=== PATIENT | female | born 1955 | race African-American/Black ===

== ENCOUNTER 2020-08-17 17:49 | Emergency (ER) | payer MEDICARE, MEDICAID, SELFPAY ==
[2020-08-17] VITALS (25 sets, daily range): BP systolic 108–160; BP diastolic 78–129; PULSE 70–90; RESP 13–38; TEMP 36.7; O2SAT 95–100
--- NOTE | ~2020-08-17 | XR_ITS ---
EXAMINATION: XR chest 1V portable DATE: 08/17/2020 18:16 INDICATION: Transient alteration of awareness. TECHNIQUE: A single frontal view of the chest was obtained. COMPARISON: None. FINDINGS: There is mild discoid atelectasis in right midlung zone. No pleural effusion or pneumothora x. The heart size is normal. IMPRESSION: 1. Mild discoid atelectasis in right midlung zone. Reviewed, dictated and finalized at location A.
--- NOTE | 2020-08-17 18:03 | ECG_ITS ---
Measurements Intervals [place] Rate: 72 P: 51 DC: 132 QRS: -14 QRSD: 72 T: 47 QT: 351 QTc: 385 Interpretive Statements SINUS RHYTHM BASELINE ARTIFACT- V1-V2, V4-V5 NORMAL ECG Electronically Signed On 08-17-2020 20:35:27 CDT by Shahid Doan D.O.
--- NOTE | 2020-08-17 18:04 | ED.GENADULT ---
HPI - General Adult General Chief complaint: Weakness Stated complaint: LETHARGY Source: patient and EMS History of Present Illness HPI narrative: Patient is a 65 y/o female brought in by EMS for altered mental status. Patient reportedly has been lethargic for last 5 days. There is no known alleviating or exacerbating factor. Patient denies any pain. She has no subjective complaints and does know why she is here. Related Data Home Medications Medication Instructions Recorded Confirmed Miralax 08/17/20 Vanicream 08/17/20 08/17/20 acetaminophen 08/17/20 amlodipine 5 mg DAILY 08/17/20 08/17/20 artificial tears solution drp OPHTHALMIC (EYE) 08/17/20 benztropine 08/17/20 divalproex See Rx Instructions .ROUTE .COMPLEX 08/17/20 08/17/20 donepezil 08/17/20 guaifenesin 08/17/20 haloperidol 10 mg PO BID 08/17/20 08/17/20 hydrocodone-acetaminophen 1 tablet PO Q6H 08/17/20 08/17/20 lisinopril 08/17/20 memantine 10 mg PO BID 08/17/20 08/17/20 multivitamin,gr-hohr-oxawkigm tablet 08/17/20 [Complete Multivitamin] paliperidone mg PO 08/17/20 quetiapine 25 mg PO BID 08/17/20 08/17/20 Allergies Allergy/AdvReac Type Severity Reaction Status Date / Time chlorpromazine Allergy Unknown Verified 08/17/20 18:26 [From Thorazine] codeine Allergy Unknown Verified 08/17/20 18:26 diazepam [From Valium] Allergy Unknown Verified 08/17/20 18:26 lorazepam [From Ativan] Allergy Unknown Verified 08/17/20 18:26 morphine Allergy Unknown Verified 08/17/20 18:26 Review of Systems Constitutional: Constitutional: Denies chills, Denies fever(s), Denies headache(s) and Denies weakness Eyes: Eyes: Denies blurry vision ENT: Denies headache(s) and Denies neck pain Cardiovascular: Cardiovascular: Denies chest pain and Denies dyspnea Respiratory: Respiratory: Denies cough and Denies dyspnea Gastrointestinal: Gastrointestinal: Denies abdominal pain, Denies diarrhea, Denies nausea and Denies vomiting Genitourinary: Genitourinary: Denies hematuria and Denies dysuria Musculoskeletal: Musculoskeletal: Denies back pain and Denies neck pain Neurologic: Denies headache(s) and Denies weakness [facility] Social History Social History Gender identity (if verbalized by the patient): Female Exam Const: General: no acute distress and well developed Orientation/consciousness: oriented to person, oriented to place, oriented to time and patient oriented x3 HENMT: Head: normocephalic Ears: external ears normal General nose exam: Normal external nose present Eyes: General: appearance normal, both eyes and all related structures Conjunctivae: conjunctivae normal Neck: Neck: normal visual inspection and full ROM Chest: Chest palpation & inspection: normal inspection of the chest and no tenderness Resp: Effort & Inspection: normal respiratory effort Auscultation: clear to auscultation bilaterally Cardio: Rate: regular rate Rhythm: regular rhythm GI: GI Palp: No abdominal tenderness and Yes Soft to palpation Skin: General skin exam: normal color and turgor normal Neuro: General: oriented to person, oriented to place, oriented to time and patient oriented x3 Cognition (Neuro): normal cognition Extrem: General: normal to inspection, full ROM and no pedal edema Psych: Appearance: grossly normal Mental Status: mental status grossly normal Affect: normal affect Course Vital Signs Vital signs: Vital Signs Pulse Rate 80 08/17/20 17:57 Respiratory Rate 18 08/17/20 17:57 Blood Pressure 127/83 08/17/20 17:57 Temperature 36.7 C 08/17/20 18:18 Pulse Rate 74 08/18/20 00:52 Respiratory Rate 16 08/18/20 00:52 Blood Pressure 110/75 08/18/20 00:32 Pulse Oximetry 100 08/17/20 22:46 Medical Decision Making Vital Signs Vital Signs: Vital Signs Pulse Rate 80 08/17/20 17:57 Respiratory Rate 18 08/17/20 17:57 Blood Pressure 127/83
--- NOTE | 2020-08-17 19:03 | PC.NURSE ---
Lab draw x2 unsuccessful, pt c/o pain with lab collection. [facility] in to attempt to draw labs as ordered.
--- NOTE | 2020-08-17 19:04 | PC.NURSE ---
Report to Florin RN, to continue care.
[2020-08-17 19:34] LABS: Basophils Percent Auto 0.2 % (0.2-1.2); Eosinophils Percent Auto 0.1 % (0-4.4); Hematocrit 39.1 % (37.0-47.0); Hemoglobin 13.1 g/dL (12.0-15.0); Immature Granulocyte Absolute 0.04 K/mm3 (0.00-0.031); Immature Granulocyte Percent A 0.4 % (0-0.5); Lymphocytes Absolute Auto 2.29 K/mm3 (0.9-3.2); Lymphocytes Percent Auto 20.5 % (18.3-44.2); Mean Corpuscular HGB Conc 33.5 g/dl (32-36); Mean Corpuscular Volume 89.5 fl (80-100); Mean Platelet Volume 10.7 fl (7.4-10.4); Monocytes Absolute Auto 1.3 K/mm3 (0.1-0.6); Monocytes Percent Auto 11.3 % (2.6-8.5); Neutrophils Absolute Auto 7.6 K/mm3 (1.3-6.7); Neutrophils Percent Auto 67.5 % (45.5-73.1); Platelet Count Result 160 k/mm3 (150-375); Red Blood Count 4.37 M/mm3 (4.2-5.4); Red Cell Distribution Width 14.1 % (11.5-14.5); White Blood Count 11.2 K/mm3 (4.5-10.0)
[2020-08-17 19:39] LABS: Alanine Aminotransferase 10 U/L (4-35); Albumin Level 3.9 g/dL (3.5-5.1); Alkaline Phosphatase 103 U/L (38-126); Anion Gap 5 mmol/L (8-16); Aspartate Amino Transferase 30 U/L (14-36); Bilirubin,Total 0.5 mg/dL (0.2-1.3); Blood Urea Nitrogen 22 mg/dL (7-17); Calcium 10.1 mg/dL (8.4-10.2); Carbon Dioxide 32 mmol/L (22-30); Chloride 107 mmol/L (98-107); Estimated CRCL calculation 40 ml/min; Estimated Glomerular Filt Rate 55; Glucose 106 mg/dL (65-105); Potassium 4.1 mmol/L (3.4-5.0); Sodium 144 mmol/L (137-145)
[2020-08-17 19:55] LABS: Alveolar/Arterial O2 Gradient 35.1 mmHg; Base Excess ABG 2.3 mEq/l (+/-2.0); Fractional Inspired Oxygen 21 %; HCO3 ABG 26.7 mEq/l (22.0-26.0); Oxygen Content ABG 17.2 %vol (16.0-22.0); Oxygen Saturation ABG 93.5 % (95.0-100.0); Oxyhemoglobin 92.5 % THb (90.0-100.0); PO2 ABG 65.5 mmHg (80.0-100.0); PO2 FiO2 Ratio Arterial Blood 3.12 %; Total Hemoglobin 13.2 g/dL (12.0-18.0); pH ABG 7.432 (7.350-7.450)
[2020-08-17 19:59] LABS: Device ROOM AIR; Modified Allen's Test Pass; Site Drawn RIGHT RADIAL
[2020-08-17 22:37] LABS: Add Urine Microscopic? YES; Appearance Urine Cloudy (Clear); Bacteria Urine 1+ /hpf; Bilirubin Urine Negative (Negative); Blood Urine 3+ (Negative); Color Urine Yellow (Yellow); Glucose Urine UA Negative (Negative); Ketones Urine Negative (Negative); Leukocyte Esterase Ur 3+ LEU/UL (Negative); Mucus Urine Rare /lpf; Nitrate Urine Negative (Negative); Protein Urine 1+ mg/dL (Negative); RBC Urine >75 /hpf (0-2); WBC Urine 51-75 /hpf
[2020-08-18] VITALS (7 sets, daily range): BP systolic 110–139; BP diastolic 74–75; PULSE 60–74; RESP 12–16
--- NOTE | 2020-08-18 00:20 | PC.NURSE ---
called [facility] to request transport. ETA [phone] called [facility] to request transport. Will call back with availability.
--- NOTE | 2020-08-18 00:27 | PC.NURSE ---
[facility] returned call. Trip accepted.
--- NOTE | 2020-08-18 00:42 | PC.NURSE ---
Report called to [place] RN. Informed of plan. Pt to be transported by EMS back to [place].
--- NOTE | 2020-08-18 00:53 | PC.NURSE ---
[facility] here.
== END 2020-08-18 01:01 ==
PROVIDERS: Emergency Provider Emergency Medicine
DX: N39.0 Urinary tract infection, site not specified (principal); R41.82 Altered mental status, unspecified; R91.8 Other nonspecific abnormal finding of lung field
CPT/HCPCS: 36415; 36600; 51701; 71045; 80053; 81001; 82805; 85025; 87077; 87086; 87088; 87186; 93005; 99283

== ENCOUNTER 2020-11-10 20:20 | Emergency (ER) | payer MEDICARE, MEDICAID, SELFPAY ==
[2020-11-10 20:27] VITALS: BP 125/95; PULSE 92; RESP 16; TEMP 36.4; O2SAT 97
[2020-11-10 21:19] LABS: Basophils Percent Auto 0.2 % (0.2-1.2); Eosinophils Percent Auto 0.1 % (0-4.4); Hematocrit 34.9 % (37.0-47.0); Hemoglobin 11.3 g/dL (12.0-15.0); Immature Granulocyte Absolute 0.03 K/mm3 (0.00-0.031); Immature Granulocyte Percent A 0.3 % (0-0.5); Lymphocytes Absolute Auto 2.78 K/mm3 (0.9-3.2); Lymphocytes Percent Auto 25.7 % (18.3-44.2); Mean Corpuscular HGB Conc 32.4 g/dl (32-36); Mean Corpuscular Hemoglobin 29.5 pg (26-34); Mean Corpuscular Volume 91.1 fl (80-100); Mean Platelet Volume 9.9 fl (7.4-10.4); Monocytes Absolute Auto 1.8 K/mm3 (0.1-0.6); Monocytes Percent Auto 16.6 % (2.6-8.5); Neutrophils Absolute Auto 6.2 K/mm3 (1.3-6.7); Neutrophils Percent Auto 57.1 % (45.5-73.1); Platelet Count Result 199 k/mm3 (150-375); Red Blood Count 3.83 M/mm3 (4.2-5.4); White Blood Count 10.8 K/mm3 (4.5-10.0)
[2020-11-10 21:25] LABS: Add Urine Microscopic? YES; Appearance Urine Cloudy (Clear); Bilirubin Urine Negative (Negative); Blood Urine 3+ (Negative); Color Urine Red (Yellow); Glucose Urine UA Negative (Negative); Ketones Urine Negative (Negative); Leukocyte Esterase Ur 3+ LEU/UL (Negative); Nitrate Urine Negative (Negative); Protein Urine 2+ mg/dL (Negative); RBC Urine >75 /hpf (0-2); Specific Grav Ur 1.012 (1.001-1.035); Squamous Epithelial Cell Urine Rare /hpf (Few); WBC Urine >75 /hpf
[2020-11-10 21:31] LABS: Anion Gap 7 mmol/L (8-16); Blood Urea Nitrogen 28 mg/dL (7-17); Calcium 9.1 mg/dL (8.4-10.2); Carbon Dioxide 25 mmol/L (22-30); Chloride 109 mmol/L (98-107); Estimated CRCL calculation 41 ml/min; Estimated Glomerular Filt Rate 50; Glucose 99 mg/dL (65-110); Potassium 4.4 mmol/L (3.4-5.0); Sodium 141 mmol/L (137-145)
--- NOTE | 2020-11-10 21:40 | ED.AMS ---
HPI - Altered Mental Status General Chief Complaint: Altered Mental Status Stated Complaint: LETHARGIC X 1.5 DAYS Time Seen by Provider: 11/10/20 20:31 History of Present Illness HPI narrative: Patient is a 65-year-old female who presents ER from shelter with reports of increased confusion/tiredness. Patient is oriented x1 at this time. She has baseline dementia as well as schizophrenia. She follows commands and has no reports of pain. There is no additional history provided. Related Data Home Medications Medication Instructions Recorded Confirmed Miralax 08/17/20 Vanicream 08/17/20 08/17/20 acetaminophen 08/17/20 amlodipine 5 mg DAILY 08/17/20 08/17/20 artificial tears solution drp OPHTHALMIC (EYE) 08/17/20 benztropine 08/17/20 divalproex See Rx Instructions .ROUTE .COMPLEX 08/17/20 08/17/20 donepezil 08/17/20 guaifenesin 08/17/20 haloperidol 10 mg PO BID 08/17/20 08/17/20 hydrocodone-acetaminophen 1 tablet PO Q6H 08/17/20 08/17/20 lisinopril 08/17/20 memantine 10 mg PO BID 08/17/20 08/17/20 multivitamin,un-vndp-byttwfii tablet 08/17/20 [Complete Multivitamin] paliperidone mg PO 08/17/20 quetiapine 25 mg PO BID 08/17/20 08/17/20 Allergies Allergy/AdvReac Type Severity Reaction Status Date / Time chlorpromazine Allergy Unknown Verified 11/10/20 20:33 [From Thorazine] codeine Allergy Unknown Verified 11/10/20 20:33 diazepam [From Valium] Allergy Unknown Verified 11/10/20 20:33 lorazepam [From Ativan] Allergy Unknown Verified 11/10/20 20:33 morphine Allergy Unknown Verified 11/10/20 20:33 Review of Systems Review of Systems: ROS unobtainable: Yes unobtainable due to mental status PMFSH Past Medical History Medical History (Updated 11/10/20 @ 21:53 by Benji Jimenez MD) Dementia Hepatitis C Hypertension Schizophrenia Sickle cell anemia Surgical History Surgical History (Updated 11/10/20 @ 21:50 by Benji Jimenez MD) Surgical history unknown Social History Social History Gender identity (if verbalized by the patient): Female Exam Narrative: Exam Narrative: GENERAL: Well-appearing, well-nourished, and in no acute distress. HEAD: Normocephalic, atraumatic. EYES: PERRL and EOMI. ENT: Mucous membranes moist. CHEST: Clear to auscultation. No respiratory distress. HEART: Regular rate and rhythm. Normal peripheral pulses. ABDOMEN: Soft, nontender, nondistended. EXTREMITIES: Normal range of motion. 1+ edema. SKIN: Warm, dry, no rash. NEURO: Alert and oriented x1. Course Course Emergency Course: Patient with UTI. Afebrile with only slightly elevated white count without left shift. Will give IV antibiotics and discharged back to shelter with oral antibiotics Vital Signs Vital signs: Vital Signs Temperature 97.5 F L 11/10/20 20:27 Pulse Rate 92 11/10/20 20:27 Respiratory Rate 16 11/10/20 20:27 Blood Pressure 125/95 H 11/10/20 20:27 Pulse Oximetry 97 11/10/20 20:27 Temperature 97.5 F L 11/10/20 20:27 Pulse Rate 92 11/10/20 20:27 Respiratory Rate 16 11/10/20 20:27 Blood Pressure 125/95 H 11/10/20 20:27 Pulse Oximetry 97 11/10/20 20:27 MDM - Altered Mental Status Lab Data Result diagrams: 11/10/20 21:13 11/10/20 21:13 Labs: Lab Results 11/10/20 11/10/20 11/10/20 Range/Units 20:53 21:13 21:13 WBC 10.8 H (4.5-10.0) K/mm3 RBC 3.83 L (4.2-5.4) M/mm3 Hgb 11.3 L (12.0-15.0) g/dL Hct 34.9 L (37.0-47.0) % MCV 91.1 (80-100) fl MCH 29.5 (26-34) pg MCHC 32.4 (32-36) g/dl RDW 14.0 (11.5-14.5) % Plt Count 199 (150-375) k/mm3 MPV 9.9 (7.4-10.4) fl Immature Gran % (Auto) 0.3 (0-0.5) % Neut % (Auto) 57.1 (45.5-73.1) % Lymph % (Auto) 25.7 (18.3-44.2) % [place] % (Auto) 16.6 H (2.6-8.5) % Eos % (Auto) 0.1 (0-4.4) % Baso % (Auto) 0.2 (0.2-1.2) % Lymph # (Auto)
[2020-11-10] MEDS: SODIUM CHLORIDE 0.9% IV 1,000 ML 999 ML IV CONT (22:41)
--- NOTE | 2020-11-10 23:50 | PC.NURSE ---
made contact with [facility] and [facility]. both companies declined. [facility] accepted with eta [phone]
[2020-11-11 00:31] VITALS: BP 116/86; PULSE 86; RESP 18; O2SAT 98
--- NOTE | 2020-11-11 02:13 | PC.NURSE ---
called [facility] for a new eta [id number]
[2020-11-11 03:36] VITALS: BP 117/102; PULSE 84; RESP 18; O2SAT 97
--- NOTE | 2020-11-11 04:02 | PC.NURSE ---
[facility] has arrived and crew is aware that pt is going to [facility]
== END 2020-11-11 04:00 ==
PROVIDERS: Emergency Provider Emergency Medicine
DX: N39.0 Urinary tract infection, site not specified (principal); F03.90 Unspecified dementia, unspecified severity, without behavioral disturbance, psychotic disturbance, mood disturbance, and anxiety; F20.9 Schizophrenia, unspecified; I10 Essential (primary) hypertension; D57.1 Sickle-cell disease without crisis; Z86.19 Personal history of other infectious and parasitic diseases
CPT/HCPCS: 36415; 80048; 81001; 85025; 87077; 87086; 87088; 87186; 96365; 96366; 99284; J0696; J7030

== ENCOUNTER 2021-04-12 02:55 | Emergency (ER) | payer OTHER, SELFPAY ==
--- NOTE | ~2021-04-12 | CT_ITS ---
EXAMINATION: CT brain wo con EXAM DATE: 04/12/2021 04:01 INDICATION: Head injury. Fell from bed. TECHNIQUE: Spiral CT of the head was performed without contrast. Axial, coronal and sagittal images were reviewed. The dose-length product (DLP) for this examination was 976.28 mGy-cm. The exposure w as tailored according to patient size, and iterative reconstruction (ASIR) was used as additional dos e reduction technique. There is no prior study for comparison. FINDINGS: There is no acute intraparenchymal hemorrhage. No evidence of intraparenchymal brain mass lesion. No evidence of acute infarction. Please note that initial head CT has limited sensitivity f or small or acute infarctions. There is moderate periventricular and subcortical hypodensity, nonspec ific but probably related to small vessel ischemic disease. There is moderate prominence of the sul ci and ventricles related to cerebral atrophy. There is intracranial carotid arteriosclerosis. The re are no extra-axial collections. There is no mass effect or midline shift. The orbits are unremar kable. Soft tissue is unremarkable. The visualized sinuses and mastoid air cells are well aerated. IMPRESSION: 1. No acute intracranial findings. 2. Chronic age related findings. Reviewed, dictated and finalized at location A. [place] [facility]
[2021-04-12 03:01] VITALS: BP 153/88; PULSE 57; RESP 18; TEMP 36.5; O2SAT 98
--- NOTE | 2021-04-12 04:13 | ED.GENADULT ---
HPI - General Adult General Chief complaint: Fall Stated complaint: GLF HIT HEAD Time Seen by Provider: 04/12/21 03:09 History of Present Illness HPI narrative: Patient is a 65-year-old female who presents to the ER from the half-way status post fall from her bed. She struck her head. No loss of consciousness. She is not on a blood thinner. Patient does have dementia and cannot provide full history. retirement concerned about intracranial hemorrhage and that is why she was sent here. Related Data Home Medications Medication Instructions Recorded Confirmed Miralax 08/17/20 Vanicream 08/17/20 08/17/20 acetaminophen 08/17/20 amlodipine 5 mg DAILY 08/17/20 08/17/20 artificial tears solution drp OPHTHALMIC (EYE) 08/17/20 benztropine 08/17/20 divalproex See Rx Instructions .ROUTE .COMPLEX 08/17/20 08/17/20 donepezil 08/17/20 guaifenesin 08/17/20 haloperidol 10 mg PO BID 08/17/20 08/17/20 hydrocodone-acetaminophen 1 tablet PO Q6H 08/17/20 08/17/20 lisinopril 08/17/20 memantine 10 mg PO BID 08/17/20 08/17/20 multivitamin,ua-ilyc-mxmtxcja tablet 08/17/20 [Complete Multivitamin] paliperidone mg PO 08/17/20 quetiapine 25 mg PO BID 08/17/20 08/17/20 Allergies Allergy/AdvReac Type Severity Reaction Status Date / Time chlorpromazine Allergy Unknown Verified 11/10/20 20:33 [From Thorazine] codeine Allergy Unknown Verified 11/10/20 20:33 diazepam [From Valium] Allergy Unknown Verified 11/10/20 20:33 lorazepam [From Ativan] Allergy Unknown Verified 11/10/20 20:33 morphine Allergy Unknown Verified 11/10/20 20:33 Review of Systems Review of Systems: ROS unobtainable: Yes unobtainable due to mental status PMFSH Past Medical History Medical History (Updated 04/12/21 @ 04:16 by Benji Jimenez MD) Dementia Hepatitis C Hypertension Schizophrenia Sickle cell anemia Surgical History Surgical History (Updated 11/10/20 @ 21:50 by Benji Jimenez MD) Surgical history unknown Social History Social History Gender identity (if verbalized by the patient): Female Exam Narrative: GENERAL: Well-appearing, well-nourished, and in no acute distress. HEAD: Normocephalic, atraumatic. EYES: PERRL and EOMI. CHEST: Clear to auscultation. No respiratory distress. HEART: Regular rate and rhythm. Normal peripheral pulses. ABDOMEN: Soft, nontender, nondistended. EXTREMITIES: Normal range of motion. No edema. NEURO: No focal deficits. Alert and oriented x2. PSYCH: Normal mood and affect. Course Course Emergency Course: Patient resting comfortably. Negative head CT. Discharge home. Vital Signs Vital signs: Vital Signs Temperature 97.7 F 04/12/21 03:01 Pulse Rate 57 L 04/12/21 03:01 Respiratory Rate 18 04/12/21 03:01 Blood Pressure 153/88 H 04/12/21 03:01 Pulse Oximetry 98 04/12/21 03:01 Temperature 97.7 F 04/12/21 03:01 Pulse Rate 57 L 04/12/21 03:01 Respiratory Rate 18 04/12/21 03:01 Blood Pressure 153/88 H 04/12/21 03:01 Pulse Oximetry 98 04/12/21 03:01 Medical Decision Making Vital Signs Vital Signs: Vital Signs Temperature 97.7 F 04/12/21 03:01 Pulse Rate 57 L 04/12/21 03:01 Respiratory Rate 18 04/12/21 03:01 Blood Pressure 153/88 H 04/12/21 03:01 Pulse Oximetry 98 04/12/21 03:01 Temperature 97.7 F 04/12/21 03:01 Pulse Rate 57 L 04/12/21 03:01 Respiratory Rate 18 04/12/21 03:01 Blood Pressure 153/88 H 04/12/21 03:01 Pulse Oximetry 98 04/12/21 03:01 Imaging Data Radiologist's impression: CT brain: No acute intracranial hemorrhage. No midline shift or mass-effect. Territorial velázquez-white matter differentiation is maintained throughout. Age-related cerebral volume loss. Periventricular and subcortical white matter hypoattenuation, consistent with chronic microangiopathy. Paranasal sinus mucosal thickening. Motion artifact noted limiting evaluation. D
--- NOTE | 2021-04-12 04:46 | PC.NURSE ---
[facility]
--- NOTE | 2021-04-12 05:48 | PC.NURSE ---
pt continues to wait for transport to [facility]
[2021-04-12 05:55] VITALS: BP 151/91; PULSE 61; RESP 18; O2SAT 99
--- NOTE | 2021-04-12 07:39 | PC.NURSE ---
[facility] has arrived and is aware that pt is going to [facility]
== END 2021-04-12 07:42 | disposition home or self-care (01) ==
PROVIDERS: Emergency Provider Emergency Medicine
DX: S09.90XA Unspecified injury of head, initial encounter (principal); W06.XXXA Fall from bed, initial encounter; F03.90 Unspecified dementia, unspecified severity, without behavioral disturbance, psychotic disturbance, mood disturbance, and anxiety; I10 Essential (primary) hypertension; D57.1 Sickle-cell disease without crisis; B19.20 Unspecified viral hepatitis C without hepatic coma; F20.9 Schizophrenia, unspecified; Z79.891 Long term (current) use of opiate analgesic
CPT/HCPCS: 70450; 99284